=== PATIENT | male | born 1970 | race African-American/Black ===

== ENCOUNTER → 2016-09-21 | Outpatient (CLI) | payer BC ==
[2016-05-18 14:44] VITALS: BP 167/85
--- NOTE | 2016-09-21 14:29 | RAD ---
APPROVED REPORT Test Type: Exercise Stress Nurse/Tech: josephine galan Test Indications: chest pain, hypertension Cardiac History: HTN, SEE EHR Medications: SEE EHR Medical History: NONE STATED,SEE EHR Resting ECG: SR Resting Heart Rate: 85 bpm Resting Blood Pressure: 182/101mmHg Pretest Chest Pain: No chest pain Nurse/Tech Notes LUNG SOUNDS CLEAR, S1S2 WNL. Consent: The procedure was explained to the patient in lay terms. Informed consent was witnessed. Osorio eout was entered into [employer]. History and Stress Test performed by RT Berhane (R) (N) Stress Symptoms LEG FATIGUE. POST EXERCISE Reason for Termination: Reached target heart rate Target HR: 146 Max HR: 155 bpm 106% of Maximum Predicted HR: 146 bpm Exercise duration: 8 min:sec, 3 Stage Exercise capacity: 10METs Max Blood Pressure: 166/100mmHg Blood Pressure response to exercise: Normal blood pressure response during stress.Abnormal increase i n blood pressure during stress. Heart Rate response to exercise: WNL Chest Pain: No. Arrhythmia: No. ST Change: No. INTERPRETATION Stress EKG Conclusion: Baseline EKG showed sinus rhythm. No ischemic changes at peak stress. No arr hythmias. Imaging Protocol IMAGE PROTOCOL: Rest Tc-99m/stress Tc-99m 1 day Rest: Stress: Viability: Radiopharm.Tc99m XxdaiogldUa86m Sestamibi Ykoi21eIf 35.3mCi Duration 15min. 10min. Img Date 09/21/2016 09/21/2016 Inj-Img Fden98atz. 60min. Rest Admin Site:IV - Left AntecubitalAdministrator:RT Berhane (R)(N) Stress Admin Site: IV - Left AntecubitalAdministrator: RT Berhane (R)(N) STRESS DATA End Diast. Vol.134.0mlAv. Heart Rate85.0bpm End Syst. Vol.41.0mlCO Index BSA0.0L/min Myocardial Dtpe464.0gEject. Umyowuqq47.0% Stress Rates Pk. Fill Rate2.71EDV/secLVtime Pk. Fill 184.34msec Pk. Empty Rate3.44ESV/secLVtime Pk. Lpnwm133.09msec / Pk. Fill1.33EDV/sec Stress Scores Regional WT2.00Summed WT5.00 Regional WM0.00Summed WM3.00 Study quality was good. Left Ventricular size was Normal at Rest and Stress. Lung uptake was Normal. Left Ventricular ejection fraction is 69%. The rest and stress images show normal perfusion, normal contraction and thickening. LV Perf. Quant 17 Seg. SSS0.00 17 Seg. SRS0.00 17 Seg. SDS0.00 Stress Defect Extent (% LAD)0.00Rest Defect Extent (% LAD)0.00Rev. Defect Extent (% LAD)0.00 Stress Defect Extent (% LCX) 0.00Rest Defect Extent (% LCX)0.00Rev. Defect Extent (% LCX)0.00 Stress Defect Extent (% RCA)0.00Rest Defect Extent (% RCA)0.00Rev. Defect Extent (% RCA)0.00 Stress Defect Extent (% HERMINIO)0.00Rest Defect Extent (% HERMINIO)0.00Rev. Defect Extent (% HERMINIO)0.00 Conclusion 1. Treadmill exercise cardioisotope stress test did not show any evidence of ischemia or infarct. 2. Normal left ventricular systolic function with ejection fraction calculated at 69%. 3. Patient had good activity tolerance. Low risk for cardiac events.
== END | disposition home or self-care (01) ==
LOC: NM 09:38
PROVIDERS: ATTEND Internal Medicine Cardiovascular Disease
DX: R94.31 Abnormal electrocardiogram [ECG] [EKG] (principal); I10 Essential (primary) hypertension
CPT/HCPCS: 78452; 93017; 96374; 96376; A9500

== ENCOUNTER → 2016-09-22 | Outpatient (CLI) | payer BC ==
[2016-05-18 14:44] VITALS: BP 167/85
--- NOTE | 2016-09-22 10:29 | CARD ---
APPROVED REPORT EXAM: Two-dimensional and M-mode echocardiogram with Doppler and color Doppler. Other Information Quality : AverageHR: 82bpm Rhythm : NSR INDICATION Abnormal ECG Chest Pain 2D DIMENSIONS RVDd2.7 (2.9-3.5cm)Left Atrium(2D)3.3 (1.6-4.0cm) IVSd0.9 (0.7-1.1cm)Aortic Root(2D)2.8 (2.0-3.7cm) LVDd6.2 (3.9-5.9cm)LVOT Diameter2.1 (1.8-2.4cm) PWd0.9 (0.7-1.1cm)LVDs3.6 (2.5-4.0cm) FS (%) 42.3 %SV139.7 ml LVEF(%)72.4 (>50%) M-Mode DIMENSIONS Left Atrium(MM)3.48 (2.5-4.0cm)Aortic Root3.48 (2.2-3.7cm) LVDd5.48 (4.0-5.6cm)Aortic Cusp Exc2.46 (1.5-2.0cm) FS (%) 41 %LVDs3.25 (2.0-3.8cm) LVEF(%)71 (>50%) Aortic Valve AoV Peak Keo.132.7cm/sAoV VTI25.0cm AO Peak GR.7.0mmHgLVOT Peak Keo.121.7cm/s LVOT VTI 21.41cmAO Mean GR.4mmHg RAJI (VMAX)3.99op3CDC (VTI)2.99cm2 Mitral Valve MV E Mspkidxg71.8cm/sMV DECEL CXVP888zv MV A Zwagdwvo25.2cm/sMV E Mean Gr.1mmHg MV LUV55cgF/A Ratio1.1 MVA (PHT)3.98cm2 TDI E/Lateral E'7.9E/Medial E'9.8 Pulmonary Valve PV Peak Prgihfzp777.9cm/sPV Peak Grad.4mmHg RVOT VTI16.4cm Tricuspid Valve TR P. Upxdxbrj783oc/sRAP MNZKMCEB5urWw TR Peak Gr.18qtEtMBIK36yfXm Pulmonary Vein S1 Esusowme16.1cm/sD2 Udladznf83.8cm/s LEFT VENTRICLE The Left Ventricle is borderline dilated. There is normal left ventricular wall thickness. Left ventr icle systolic function is normal. The Ejection Fraction is 65-70%. There is normal LV segmental wall motion. The left ventricular diastolic function and filling is normal for age. RIGHT VENTRICLE The right ventricle is normal size. There is normal right ventricular wall thickness. The right ventr icular systolic function is normal. ATRIA The left atrium size is normal. The right atrium size is normal. The interatrial septum is intact wit h no evidence for an atrial septal defect or patent foramen ovale as noted on 2-D or Doppler imaging. AORTIC VALVE The aortic valve is normal in structure and function. Doppler and Color Flow revealed no significant aortic regurgitation. There is no significant aortic valvular stenosis. MITRAL VALVE The mitral valve leaflets are thickened. There is no mitral valve stenosis. Doppler and Color Flow re vealed no mitral valve regurgitation noted. TRICUSPID VALVE The tricuspid valve is normal in structure and function. Doppler and Color Flow revealed trace tricus pid regurgitation. The pulmonary artery systolic pressure is estimated at 27 mmHg. There is no tricus pid valve stenosis. PULMONIC VALVE The pulmonary valve is normal in structure and function. Doppler and Color Flow revealed mild pulmoni c valvular regurgitation. There is no pulmonic valvular stenosis. GREAT VESSELS The aortic root is normal in size. Normal pulmonary venous flow (Doppler). The IVC is normal in size and collapses >50% with inspiration. PERICARDIAL EFFUSION There is no evidence of significant pericardial effusion. Critical Notification Critical Value: No <Conclusion> Left ventricle systolic function is normal. The Ejection Fraction is 65-70%. There is normal LV segmental wall motion. No significant valvular disease.
== END | disposition home or self-care (01) ==
LOC: ECHO 08:01
PROVIDERS: ATTEND Internal Medicine Cardiovascular Disease
DX: I07.1 Rheumatic tricuspid insufficiency (principal); I37.1 Nonrheumatic pulmonary valve insufficiency; R94.31 Abnormal electrocardiogram [ECG] [EKG]
CPT/HCPCS: 93306

== ENCOUNTER → 2021-07-01 | Outpatient (CLI) | payer OTHER ==
[2016-05-18 14:44] VITALS: BP 167/85
[~2021-07-01] MED LIST: AMLO-186 PO; HYDR-2765 PO; OMEP20TA63 PO; OXYC1TAB22 PO
== END ==
LOC: LAB 08:24
PROVIDERS: ATTEND Orthopaedic Surgery
DX: Z01.812 Encounter for preprocedural laboratory examination (principal); Z20.822 Contact with and (suspected) exposure to COVID-19
CPT/HCPCS: U0003; U0005

== ENCOUNTER 2021-07-02 08:42 | Day surgery (SDC) | payer OTHER ==
[~2021-07-02] VITALS: Ht 180.3 cm; Wt 87.0 kg
[2021-07-02] MEDS ORDERED: AMLO-186 PO (09:05)
[2021-07-02] MEDS ORDERED: OMEP20TA63 PO (09:05)
[2021-07-02 09:09] VITALS: BP 190/91
[2021-07-02] MEDS ORDERED: PROPOFOL 10 MG/ML (20ML) VIAL. IV ONE (11:08)
[2021-07-02] MEDS ORDERED: fentaNYL PF VIAL 100 MCG/2 ML VIAL ONE (11:08)
[2021-07-02] MEDS ORDERED: LIDOCAINE 2% PF 5 ML VIAL. ONE (11:08)
[2021-07-02] MEDS ORDERED: ONDANSETRON PF 4 MG/2 ML VIAL. ONE (11:08)
[2021-07-02] MEDS ORDERED: DEXAMETHASONE SOD PHOS 4 MG/ML VIAL ONE (11:08)
[2021-07-02] MEDS ORDERED: MIDAZOLAM HCL/PF 2 MG/2 ML VIAL. ONE (11:09)
[2021-07-02] MEDS ORDERED: BUPIVACAINE MPF 0.25% 30 ML VIAL. ONE (11:26)
[2021-07-02] MEDS ORDERED: OXYC1TAB22 PO (12:09)
--- NOTE | 2021-07-02 12:12 | DISCH ---
DISCHARGE INSTRUCTIONS Condition on Discharge Condition on Discharge: Stable Activity After Discharge Activity Instructions for Disc: Other, see below (May use hand for fine motor use such as eating writing typing avoid hard grasping or heavy lifting or pressure over the incision) Weight Bearing Status after Di: Non weight bearing Diet after Discharge Diet after Discharge: Regular Wound Incision Care Wound/Incision Care: Ice to area for comfort, Keep wound elevated, Change dressing (Keep dressing intact unless soiled or wet) Contacting the DRKaren after DC Call your doctor for: Concerns you may have Follow-Up Follow up with: Dr. Cole or Steve 10 days PÉREZ COLE MD Jul 02, 2021 12:12
[2021-07-02] MEDS ORDERED: HYDR-2765 PO (12:17)
[2021-07-02 12:30] VITALS: BP 149/88
[2021-07-02] MEDS ORDERED: HYDROcodone/APAP 7.5/325MG 1 TAB TABLET PO ONE (12:45)
--- NOTE | 2021-07-02 13:42 | PDOC4 ---
Operative Note Operative Note Date of surgery: 07/02/2021 Preoperative diagnosis: Right carpal tunnel syndrome Postoperative diagnosis: Same with moderate median nerve compression Operative procedure: Right carpal tunnel release Surgeon: Douglas Assist: Hung rodriguez Anesthesia: General Estimated blood loss: 1 cc Complications: None Operative indications: Patient has clinical signs of carpal tunnel syndrome with EMG verification and more severe numbness tingling and pain unresponsive with bracing and other nonoperative treatment. I had gone over with him the functional anatomy the risks benefits postoperative course of potential carpal tunnel release, the possibility of incomplete relief possibility of additional nerve or blood vessel damage infection incisional area pain medical or other anesthetic complications among others all his questions were answered he wishes to proceed with surgical evaluation and treatment Operative text: Patient was identified procedure verified patient placed in the supine position on the operating table. After adequate amounts of general anesthesia were administered the right upper extremity was prepped and draped in standard sterile fashion with the upper arm tourniquet and after timeout was performed patient procedure identified and verified the right upper extremity was exsanguinated by Esmarch bandage tourniquet inflated to 250 mmHg and a longitudinal incision was made just distal to the distal palmar crease dissection carried out down to the transverse carpal ligament which was then divided sharply under direct vision toward the ulnar side and division of the transverse carpal ligament was continued with tenotomy scissors both distally and proximally and verified to be complete both visually and palpably. Contents of the carpal tunnel noted the median nerve to be with moderate compression and tendons free from any damage or synovitis. There irrigation carried out normal saline solution 10 cc of half percent plain Marcaine were placed surrounding the incision and closure accomplished with nylon suture in a vertical mattress fashion. Sterile soft dressings were placed and fingers were noted to be warm pink following deflation of the tourniquet. Patient was returned to recovery room stable condition having tolerated procedure well. Hung rodriguez was present for the procedure and assisted in patient positioning prepping draping retraction closure and dressings PÉREZ MCGUIRE MD Jul 02, 2021 13:42
== END 2021-07-02 13:50 | disposition home or self-care (01) ==
LOC: SURG 08:42
PROVIDERS: ATTEND Orthopaedic Surgery
DX: G56.01 Carpal tunnel syndrome, right upper limb (principal); I10 Essential (primary) hypertension; K21.9 Gastro-esophageal reflux disease without esophagitis; Z79.899 Other long term (current) drug therapy; Z98.890 Other specified postprocedural states
CPT/HCPCS: 64721; J0690; J1100; J2250; J2405; J2704; J3010; J3490; A4657; A4930; A6452